=== PATIENT | female | born 1985 | race Caucasian/White ===

== ENCOUNTER 2016-10-28 09:12 | Day surgery (SDC) | payer OTHER ==
[~2016-10-28 09:12] MED LIST: RINGERS SOLUTION,LACTATED 1,000 ML IV PRN; VANCOMYCIN HCL 1 GM in DEXTROSE 5 % IN WATER 250 ML IV PRN
--- OUTSIDE RECORDS SUMMARY | 2016-10-28 09:17 | XMS REPORT | Continuity of Care Document ---
:1985 Author Organization [facility] ([facility]) Address [address] [place] [address] Phone [phone] Care Team Providers Name Role Phone LintonHarry Primary Care Provider [phone] Source Comments This disclosure is being made pursuant to the Care Everywhere program, applicable federal and state laws, and may not contain all informaitonavailable regarding this patient.[facility] ([facility]) Active Allergies and Adverse Reactions Allergen Noted Date Severity Reactions Comments Azithromycin 12/06/2014 Rash Cotrim Double-Strength 03/31/2012 Urticaria (Hives) Penicillins 10/23/2011 OTHER Dad is allergic, so she has never had it. Sulfa (Sulfonamide 05/13/2012 Urticaria (Hives) Antibiotics) Current Medications Prescription Sig. Disp. Refills Start Date End Date Status SUPPLY insulin Five injections qd 200 Syringe 11 06/21/2014 Active syringe w/ needle - IDDM Indications: U-100 0.5 mL 31 g TYPE 1 DIABETES x 12/29" MELLITUS SUPPLY blood daily DX:250.03 100 Strip 3 06/25/2015 Active glucose (FREESTYLE INSULINX TEST STRIPS) test strips SUPPLY FREESTYLE Take as directed 100 Each 11 06/26/2015 Active lancets daily DX:E10.9 mupirocin Use into both 10 g 5 04/25/2016 Active (BACTROBAN) 2 % nostrils 2 times nasal ointment daily. Also apply to armpits three times weekly albuterol 90 Use 1-2 Puffs by 8.5 g 1 06/09/2016 Active mcg/Actuation inhalation every 4 inhaler hours as needed. SUPPLY insulin Inject 120 Syringe 5 06/16/2016 Active syringe w/ needle subcutaneously 4 U-100 (INSULIN times daily. SYRINGE) 1 mL 30 g x 5/16" insulin glargine Inject 40 Units 20 mL 11 07/07/2016 Active (LanTUS) 100 subcutaneously 2 unit/mL injection times daily. vial lisinopril 10 mg Take 1 tablet (10 mg 90 tablet 3 07/21/2016 Active tablet total) by mouth daily. albuterol-ipratrop Use 3 mL by 25 mL 11 07/21/2016 Active ium 2.5-0.5 mg/3 inhalation every 6 mL inhalation hours as needed. solution insulin lispro Inject 15 Units 20 mL 11 08/18/2016 Active (HumaLOG) 100 subcutaneously 3 unit/mL injection times daily before vial meals. diazePAM 5 mg Take 1 tablet (5 mg 60 tablet 2 09/22/2016 Active tablet total) by mouth every 12 hours as needed. simvastatin 20 mg Take 1 tablet (20 mg 90 tablet 3 09/24/2016 Active tablet total) by mouth every evening. Active Problems Problem Noted Date High body mass index 05/17/2014 HTN (hypertension) 03/31/2012 Myopia, bilateral 11/16/2011 Non-proliferative diabetic retinopathy, both eyes 11/16/2011 Diabetes mellitus type 1 10/23/2011 Overview: Diagnosed at the age of 14. On insulin since . Resolved Problems Problem Noted Date Resolved Date DM type 2 (diabetes mellitus, type 2) 10/23/2011 10/23/2011 Most Recent Encounters Date Type Specialty Providers Description 10/09/2016 Orders/Notes Misa Galindo CMA 10/06/2016 Orders/Notes Harry Acevedo, Dx: Bilateral carpal PA-C tunnel syndrome (Primary Dx) 09/24/2016 Office Visit Harry Gross, Dx: IDDM (insulin Specialty PA-C dependent diabetes mellitus) 09/24/2016 Office Visit Harry Acevedo Dx: IDDM ( insulin PA-C dependent diabetes mellitus) (Primary Dx) 09/22/2016 Office Visit Harry Acevedo, Dx: Bilateral carpal PA-C tunnel syndrome (Primary Dx) 08/18/2016 Office Visit Harry Acevedo, Dx: Anxiety about PA-C health (Primary Dx) 08/13/2016 Office Visit Harry Gross, Dx: Acute bronchitis , Specialty PA-C unspecified organism (Primary Dx) Immunizations Name Dates Previously Given Next Due Influenza, quadrivalent PF 09/24/2016 Pneumococcal Polysaccharide, PPSV23 (Pneumovax 23) 10/23/2011 Tdap 10/23/2011 Social History Tobacco Use Types Packs/Day Years Used Date Never Smoker Smokeless Tobacco: Never Used Alcohol Use Drinks/Week oz/Week Comments No Last Filed Vital Signs Vital Sign Reading Time Taken Blood Pressure 158/85 09/24/2016 10:01 AM TOOL HARDENER Pulse 69 09/24/2016 10:01 AM TOOL HARDENER Temperature 36.3 C (97.4 F) 09/24/2016 10:01 AM TOOL HARDENER Respiratory Rate 14 07/21/2016 12:22 PM TOOL HARDENER Height 1.676 m (5' 5.98") 04/14/2016 3:37 PM CDT Weight 135.172 kg (298 lb) 09/24/2016 10:01 AM TOOL HARDENER Body Mass Index 48.12 09/24/2016 10:01 AM TOOL HARDENER Oxygen Saturation 97% 06/09/2016 9:54 AM CDT Plan of Care Patient Goal Type Goal Diet Decrease soda or juice intake Increase water intake Weight Weight below 91 kg (200 lb) Blood Pressure Blood Pressure below 130/80 Result Component % HBA1C below 7.0 LDLC below 100 Health Maintenance Due Date Last Done Comments Hepatitis B Vaccine (1 of 3 - 1985 Primary Series) MMR Vaccine 11/18/2001 Varicella Vaccine (1 of 2 - 11/18/2001 Adult - No Evidence of Immunity) DIABETIC: Retinal Eye Exam 05/13/2013 05/13/2012, 05/13/2012 DIABETIC: Foot Exam 07/05/2013 07/05/2012, 07/05/2012, 07/05/2012 Cervical Cancer Screening 11/18/2013 DIABETIC: Microalbumin 02/26/2016 02/25/2015, 05/17/2014, 10/23/2011 DIABETIC: Hemoglobin A1C 03/24/2017 09/24/2016, Additional history exists 05/11/2016, 02/04/2016 DIABETIC: Cholesterol 09/24/2017 09/24/2016, 10/23/2011 Diabetic: Hdl 09/24/2017 09/24/2016, 10/23/2011 Diabetic: Ldl 09/24/2017 09/24/2016, 10/23/2011 DIABETIC: Triglycerides 09/24/2017 09/24/2016, 10/23/2011 Td Vaccine 10/22/2021 10/23/2011 Pneumococcal Vaccine Completed 10/23/2011 Tdap Vaccine Completed 10/23/2011 Influenza Vaccine: Seasonal Completed 09/24/2016 Results from Last 3 Months [facility] LIPID PROFILE (09/24/2016 10:30 AM) Component Value Range [facility] Cholesterol 153 0-200 mg/dL [facility] Triglycerides 136 0-150 mg/dL [facility] HDL Cholesterol 41 40-60 mg/dL [facility] LDL, Quant 84.8 <=130 mg/dL Specimen Blood [facility] BASIC METABOLIC PANEL (W/ CALCIUM TOTAL) (09/24/2016 10:30 AM) Component Value Range [facility] Sodium 143 137-145 mmol/L [facility] Potassium 4.2 3.4-5.1 mmol/L [facility] Chloride 103 98-107 mmol/L [facility] CO2 30 20-30 mmol/L [facility] Glucose 119(H) 60-110 mg/dL [facility] BUN 15 7-17 mg/dL [facility] Creatinine 0.75 0.70-1.25 mg/dL [facility] Calcium 9.5 8.4-10.5 mg/dL [facility] Calculated GFR 90 >60 mL/min/1.73 m2 Specimen Blood [facility] HEMOGLOBIN A1C (GLYCOSYLATED) (09/24/2016 10:30 AM) Component Value Range [facility] Hgb A1C (Glycosylated) 9.6(H) 4.3-5.8 % Specimen Blood
[2016-10-28] MEDS ORDERED: BUPIVACAINE HCL 50 ML VIAL IJ ONE (11:05)
--- NOTE | 2016-10-28 11:20 | OR ---
Operative Report - Dictated Report Narrative: Date: 10/28/2016 Physician: Ortega Duncan M.D. Academic Affairs Specialist: Armando Gomez PA-C Preoperative diagnosis: Left carpal tunnel syndrome Postoperative diagnosis: Left carpal tunnel syndrome Procedure: Endoscopic left carpal tunnel release Anesthesia: MAC plus local Complications: None Estimated blood loss: Minimal Tourniquet time: 10 Minutes at 250 mmHg Specimens: None Retained implants: None Drains: None Indications: Mrs. Bentley Is a 30-year-old female who has been followed in my clinic with complaints of carpal tunnel syndrome. Physical exam as well as diagnostic testing showed compression of the median nerve compatible with carpal tunnel syndrome. Conservative measures have failed including but not limited to activity modification, medications, and/or bracing. The risks, benefits, and alternatives were discussed in clinic. The risks being bleeding, infection, nerve, tendon, blood vessel injury, persistent pain, wound competitions, weakness, palm pain, need for additional procedures, and persistent symptoms. Consent was obtained in the clinic. Procedure: After marking the correct extremity in the preoperative holding area, a timeout was performed in the operating room. 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 A well- padded tourniquet was applied to the operative upper arm. The arm was exsanguinated and the tourniquet was inflated to 250 mmHg. 0.5% Marcaine without epinephrine was infused into the projected portal sites. Using Loupe magnification, a transverse incision was made in the proximal wrist flexion crease just ulnar to the ulnar to the palmaris longus tendon or in line with approximately the ring finger. Blunt dissection and hemostasis with bipolar cautery was utilized down to the forearm fascia. The forearm fascia was split longitudinally just ulnar to the palmaris longus exposing the entry into the carpal tunnel. A Humboldt was placed under the transverse carpal ligament elevating the soft tissues under the dorsal aspect of the transverse carpal ligament. This was confirmed to be under the transverse carpal ligament based on the corrugated nature of the tissue. Once we had removed soft tissues from the transverse carpal ligament, a blunt trocar and cannula was introduced under the transverse carpal ligament exiting the palm through a stephanie incision. The hand was then placed in a extension holding device and the camera was introduced into the cannula. A probe was utilized in order to ensure that all soft tissues were elevated off the dorsal aspect of the transverse carpal ligament and ensuring that all tissues were running transversely. No vascular or neurologic tissues were visualized. The push, followed by probe, followed by hook blades was utilized to transect the distal one half of the transverse carpal ligament. This allowed for ingress of fat. The camera was then placed distally looking proximally, and the proximal one half of the transverse carpal ligament was transected using the hook blade. This again allowed for ingress of fat. The probe blade was utilized in order to release any additional remaining fibers. Once it was felt that the transverse carpal ligament was completely transected, the blunt trocar was reintroduced into the trocar and removed in whole. A Ragnell was utilized in order to visualize the carpal tunnel ensuring that the transverse carpal ligament was completely released using a Humboldt. The distal forearm fascia was released ensuring that the median nerve was completely decompressed utilizing tenotomy scissors. Once it was felt that all the tissues overlying the median nerve were completely released, the wounds were thoroughly irrigated with saline which passed freely from the proximal to distal portal holes. Tourniquet was deflated and hemostasis was obtained with pressure as well as bipolar cautery. Once bleeding had resolved and there was no excessive bleeding, the wounds were closed with interrupted nylon. Xeroform, 4 x 4's, soft roll, and a well-padded dorsal short arm wrist splint was applied, and the patient was awoken and transferred to the postanesthesia care unit in stable condition. All sponge, needle, blade, and instrument counts were correct prior to closing the wounds. Additional 0.5% Marcaine without epinephrine was infused into the skin edges for pain control.
[2016-10-28 12:34] VITALS: BP 128/73
== END 2016-10-28 09:13 | disposition home or self-care (01) ==
LOC: AMB 09:12
PROVIDERS: ATTEND Orthopaedic Surgery
PROC: 01N54ZZ Release Median Nerve, Percutaneous Endoscopic Approach (ICD-10-PCS; principal; 2016-10-28 12:15)
DX: G56.02 Carpal tunnel syndrome, left upper limb (principal); I10 Essential (primary) hypertension; E10.9 Type 1 diabetes mellitus without complications; Z68.42 Body mass index [BMI] 45.0-49.9, adult

== ENCOUNTER 2016-11-11 06:40 | Day surgery (SDC) | payer OTHER ==
[~2016-11-11 06:40] MED LIST changes: +RINGER'S SOLUTION,LACTATED 1,000 ML IV PRN; -RINGERS SOLUTION,LACTATED 1,000 ML IV PRN
--- OUTSIDE RECORDS SUMMARY | 2016-11-11 06:44 | XMS REPORT | Continuity of Care Document ---
:1985 Author Organization [facility] ([facility]) Address [address] [place] [address] Phone [phone] Care Team Providers Name Role Phone LintonHarry Primary Care Provider [phone] Source Comments This disclosure is being made pursuant to the Care Everywhere program, applicable federal and state laws, and may not contain all informaitonavailable regarding this patient.[facility] ([facility]) Active Allergies and Adverse Reactions Allergen Noted [...] Taken Blood Pressure 158/85 09/24/2016 10:01 AM AUTO APPRENTICE MECHANIC Pulse 69 09/24/2016 10:01 AM AUTO APPRENTICE MECHANIC Temperature 36.3 C (97.4 F) 09/24/2016 10:01 AM AUTO APPRENTICE MECHANIC Respiratory Rate 14 07/21/2016 12:22 PM AUTO APPRENTICE MECHANIC Height 1.676 m (5' 5.98") 04/14/2016 3:37 PM CDT Weight 135.172 kg (298 lb) 09/24/2016 10:01 AM AUTO APPRENTICE MECHANIC Body Mass Index 48.12 09/24/2016 10:01 AM AUTO APPRENTICE MECHANIC Oxygen Saturation 97% 06/09/2016 9:54 AM CDT [...] Completed 09/24/2016 Results from Last 3 Months [facility] LIPID PROFILE (09/24/2016 10:30 AM) Component Value Range [facility] Cholesterol 153 0-200 mg/dL [facility] Triglycerides 136 0-150 mg/dL [facility] HDL Cholesterol 41 40-60 mg/dL [facility] LDL, Quant 84.8 <=130 mg/dL Specimen Blood [facility] BASIC METABOLIC PANEL (W/ CALCIUM TOTAL) (09/24/2016 10:30 AM) Component Value Range [facility] Sodium 143 137-145 mmol/L [facility] Potassium 4.2 3.4-5.1 mmol/L [facility] Chloride 103 98-107 mmol/L [facility] CO2 30 20-30 mmol/L [facility] Glucose 119(H) 60-110 mg/dL [facility] BUN 15 7-17 mg/dL [facility] Creatinine 0.75 0.70-1.25 mg/dL [facility] Calcium 9.5 8.4-10.5 mg/dL [facility] Calculated GFR 90 >60 mL/min/1.73 m2 Specimen Blood [facility] HEMOGLOBIN A1C (GLYCOSYLATED) (09/24/2016 10:30 AM) Component Value Range [facility] Hgb A1C (Glycosylated) 9.6(H) 4.3-5.8 % Specimen Blood
[2016-11-11] MEDS ORDERED: BUPIVACAINE HCL 50 ML VIAL IJ ONE (08:12)
--- NOTE | 2016-11-11 09:34 | OR ---
Operative Report - Dictated Report Narrative: Date: 11/11/2016 Physician: Ortega Duncan M.D. Visor Installer: Armando Gomez PA-C Preoperative diagnosis: Right carpal tunnel syndrome Postoperative diagnosis: Right carpal tunnel syndrome Procedure: Endoscopic right carpal tunnel release Anesthesia: MAC plus local Complications: None Estimated blood loss: Minimal Tourniquet time: 11 Minutes at 250 mmHg Specimens: None Retained implants: None Drains: None Indications: Ms. Bentley Is a 30-year-old female who has been followed in my clinic with complaints of carpal tunnel syndrome. Physical exam as well as diagnostic testing showed compression of the median nerve compatible with carpal tunnel syndrome. Conservative measures have failed including but not limited to activity modification, medications, and/or bracing. The risks, benefits, and alternatives were discussed in clinic. The risks being bleeding, infection, nerve, tendon, blood vessel injury, persistent pain, wound competitions, weakness, palm pain, need for additional procedures, and persistent symptoms. Consent was obtained in the clinic. Procedure: After marking the correct extremity in the preoperative holding area, a timeout was performed in the operating room. IV antibiotics consisting of vancomycin secondary to history of multiple MRSA lesions were administered prior to the procedure. A well-padded tourniquet was applied to the operative upper arm. The arm was exsanguinated and the tourniquet was inflated to 250 mmHg. 0.5% Marcaine without epinephrine was infused into the projected portal sites. Using Loupe magnification, a transverse incision was made in the proximal wrist flexion crease just ulnar to the ulnar to the palmaris longus tendon or in line with approximately the ring finger. Blunt dissection and hemostasis with bipolar cautery was utilized down to the forearm fascia. The forearm fascia was split longitudinally just ulnar to the palmaris longus exposing the entry into the carpal tunnel. A Winfred was placed under the transverse carpal ligament elevating the soft tissues under the dorsal aspect of the transverse carpal ligament. This was confirmed to be under the transverse carpal ligament based on the corrugated nature of the tissue. Once we had removed soft tissues from the transverse carpal ligament, a blunt trocar and cannula was introduced under the transverse carpal ligament exiting the palm through a stephanie incision. The hand was then placed in a extension holding device and the camera was introduced into the cannula. A probe was utilized in order to ensure that all soft tissues were elevated off the dorsal aspect of the transverse carpal ligament and ensuring that all tissues were running transversely. No vascular or neurologic tissues were visualized. The push, followed by probe, followed by hook blades was utilized to transect the distal one half of the transverse carpal ligament. This allowed for ingress of fat. The camera was then placed distally looking proximally, and the proximal one half of the transverse carpal ligament was transected using the hook blade. This again allowed for ingress of fat. The probe blade was utilized in order to release any additional remaining fibers. Once it was felt that the transverse carpal ligament was completely transected, the blunt trocar was reintroduced into the trocar and removed in whole. A Ragnell was utilized in order to visualize the carpal tunnel ensuring that the transverse carpal ligament was completely released using a Winfred. The distal forearm fascia was released ensuring that the median nerve was completely decompressed utilizing tenotomy scissors. Once it was felt that all the tissues overlying the median nerve were completely released, the wounds were thoroughly irrigated with saline which passed freely from the proximal to distal portal holes. Tourniquet was deflated and hemostasis was obtained with pressure as well as bipolar cautery. Once bleeding had resolved and there was no excessive bleeding, the wounds were closed with interrupted nylon. Xeroform, 4 x 4's, soft roll, and a well-padded dorsal short arm wrist splint was applied, and the patient was awoken and transferred to the postanesthesia care unit in stable condition. All sponge, needle, blade, and instrument counts were correct prior to closing the wounds. Additional 0.5% Marcaine without epinephrine was infused into the skin edges for pain control.
[2016-11-11 09:47] VITALS: BP 129/65
== END 2016-11-11 06:41 | disposition home or self-care (01) ==
LOC: AMB 06:40
PROVIDERS: ATTEND Orthopaedic Surgery
PROC: 01N54ZZ Release Median Nerve, Percutaneous Endoscopic Approach (ICD-10-PCS; principal; 2016-11-11 08:00)
DX: G56.01 Carpal tunnel syndrome, right upper limb (principal); I10 Essential (primary) hypertension; E10.9 Type 1 diabetes mellitus without complications; Z68.42 Body mass index [BMI] 45.0-49.9, adult